=== PATIENT | female | born 1990 ===

== ENCOUNTER 2017-02-11 13:23 | Emergency (ER) | payer OTHER ==
[2017-02-11 13:40] VITALS: BMI 16.9
[2017-02-11] MEDS ORDERED: TDAP Vaccine 0.5 mL Syr IM ONE (13:40)
--- NOTE | 2017-02-11 13:40 | ED PDOC ---
Arrival/HPI - General Time Seen by Provider: 02/11/17 13:38 Historian: Patient - History of Present Illness Narrative History of Present Illness (Text): 02/11/17 13:38 This 26 yo female presents to this ED for evaluation of needle stick while at work x [employer]. 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 Denies other complains. Time/Duration: Prior to Arrival Context: Work Past Medical History - Provider Review Nursing Documentation Reviewed: Yes Family/Social History - Physician Review Nursing Documentation Reviewed: Yes Family/Social History: Other (non-contributory) Allergies/Home Meds Allergies/Adverse Reactions: Allergies No Known Allergies Allergy (Verified 02/11/17 13:40) Home Medications: Home Meds Medication Instructions Recorded Confirmed No Known Home Med 02/11/17 02/11/17 Review of Systems - Review of Systems Constitutional: Normal. absent: Fatigue, Weight Change, Fevers Eyes: Normal ENT: Normal Respiratory: Normal Cardiovascular: Normal Gastrointestinal: Normal Genitourinary Female: Normal Musculoskeletal: Other (see hpi) Skin: Normal Neurological: Normal Endocrine: Normal Hemo/Lymphatic: Normal Psychiatric: Normal Physical Exam Vital Signs Temp Pulse Resp BP Pulse Ox 02/11/17 13:41 98.3 F 73 18 124/76 100 Temperature: Afebrile Blood Pressure: Normal Pulse: Regular Respiratory Rate: Normal Appearance: Positive for: Well-Appearing, Non-Toxic, Comfortable Pain Distress: None Mental Status: Positive for: Alert and Oriented X 3 - Systems Exam Head: Present: Atraumatic, Normocephalic Pupils: Present: PERRL Extroacular Muscles: Present: EOMI Conjunctiva: Present: Normal Mouth: Present: Moist Mucous Membranes Neck: Present: Normal Range of Motion Respiratory/Chest: Present: Clear to Auscultation, Good Air Exchange. No: Respiratory Distress, Accessory Muscle Use, Wheezes, Decreased Breath Sounds, Rales, Retracting, Rhonchi, Tachypneic Cardiovascular: Present: Regular Rate and Rhythm, Normal S1, S2. No: Murmurs Upper Extremity: Present: Normal Inspection, Normal ROM, NORMAL PULSES, Neurovascularly Intact, Capillary Refill < 2s, Other (superficial abrasion/ puncture left dorsal index finger near distal IPJ area). No: Cyanosis, Edema Neurological: Present: GCS=15, CN II-XII Intact, Speech Normal, Motor Func Grossly Intact, Normal Sensory Function, Normal Cerebellar Funct, Gait Normal Skin: Present: Warm, Dry, Normal Color. No: Rashes Psychiatric: Present: Alert, Oriented x 3, Normal Insight, Normal Concentration Medical Decision Making ED Course and Treatment: 02/11/17 14:24 Re-evaluation. Patient feels better. Discussed results and plan with patient who expresses understanding. All questions answered and there is agreement with the plan to discharge home with instructions. Patient stable for discharge. Return if symptoms persist or worsen. 02/11/17 14:24 Patient refused to have prophylactic treatment for HIV. Re-evaluation Time: 14:24 Reassessment Condition: Re-examined, Improved - Lab Interpretations Lab Results: 02/11/17 14:00 02/11/17 14:00 Lab Results 02/11/17 14:00: Sodium 140, Potassium 4.1, Chloride 102, Carbon Dioxide 27, Anion Gap 15, BUN 13, Creatinine 0.6, Est GFR ( Amer) > 60, Est GFR (Non- Af Amer) > 60, Random Glucose 89, Calcium 9.7, Total Bilirubin 0.8, AST 22, ALT 28, Alkaline Phosphatase 42, Total Protein 7.6, Albumin 4.5, Globulin 3.1, Albumin/Globulin Ratio 1.5, Amylase 65, Lipase 28 02/11/17 14:00: WBC 7.0, RBC 4.59, Hgb 13.0, Hct 37.8, MCV 82.4, MCH 28.3, MCHC 34.4, RDW 13.8, Plt Count 268, MPV 10.7, Gran % 73.2 H, Lymph % (Auto) 21.4 L, [place] % (Auto) 5.0, Eos % (Auto) 0.3 L, Baso % (Auto) 0.1, Gran # 5.09, Lymph # 1.5, [place] # 0.4, Eos # 0.0, Baso # 0.01 - Medication Orders Current Medication Orders: Discontinued Medications Tetanus/Reduced Diphtheria/Acell Pertussis (Boostrix Vaccine Inj) 0.5 ml IM .ONCE ONE Stop: 02/11/17 13:41 Last Admin: 02/11/17 14:14 Dose: 0.5 ml [facility] [place] Immunization Data Document 02/11/17 14:14 MR (Rec: 02/11/17 14:15 MR [id number]) Immunization Data Vaccine Lot Number [id number] Disposition/Present on Arrival - Present on Arrival Any Indicators Present on Arrival: No History of DVT/PE: No History of Uncontrolled Diabetes: No Urinary Catheter: No History of Decub. Ulcer: No - Disposition Have Diagnosis and Disposition been Completed?: Yes Diagnosis: Needle stick injury of finger Disposition: HOME/ ROUTINE Disposition Time: 14:25 Patient Plan: Discharge Condition: GOOD Discharge Instructions (ExitCare): Needle Stick Injuries (ED) Additional Instructions: Call employee health Department for further medical care. return to emergency if infection occurs Referrals: Trent Edwards, DO [Primary Care Provider] - Follow up with primary
[2017-02-11 13:42] VITALS: BP 124/76; PULSE 73; RESP 18; TEMP 98.3; O2SAT 100
[2017-02-11 14:11] LABS: BASO # 0.01 K/mm3 (0.0-2.0); BASO % 0.1 % (0.0-3.0); EOS % 0.3 % (1.5-5.0); GRAN # 5.09 (1.4-6.5); GRAN % 73.2 % (50.0-68.0); HEMATOCRIT 37.8 % (36.0-48.0); LYMPH # 1.5 (1.2-3.4); LYMPH % 21.4 % (22.0-35.0); MEAN CELL VOLUME 82.4 fl (80.0-105.0); MEAN CORPUSCULAR HEMOGLOBIN 28.3 pg (25.0-35.0); MEAN CORPUSCULAR HGB CONC 34.4 g/dl (31.0-37.0); MEAN PLATELET VOLUME 10.7 fl (7.0-11.0); MONO # 0.4 (0.1-0.6); RED CELL DISTRIBUTION WIDTH 13.8 % (11.5-14.5)
[2017-02-11 14:21] LABS: ALB/GLOB RATIO 1.5 (1.1-1.8); ALKALINE PHOSPHATASE 42 U/L (38-126); ALT/SGPT 28 U/L (7-56); AMYLASE 65 U/L (35-125); AST/SGOT 22 U/L (14-36); BILIRUBIN,TOTAL 0.8 mg/dL (0.2-1.3); BLOOD UREA NITROGEN 13 mg/dL (7-21); CALCIUM 9.7 mg/dL (8.4-10.5); CARBON DIOXIDE 27 mmol/L (21-33); CHLORIDE 102 mmol/L (98-107); GFR AFRICAN-AMERICAN > 60; GLUCOSE,RANDOM 89 mg/dL (70-110); LIPASE 28 U/L (23-300); POTASSIUM 4.1 mmol/L (3.6-5.0); SODIUM 140 mmol/L (132-148); TOTAL PROTEIN 7.6 g/dL (5.8-8.3)
[2017-02-11 14:36] LABS: URINE BILIRUBIN NEGATIVE (NEGATIVE); URINE BLOOD NEGATIVE (NEGATIVE); URINE GLUCOSE (UA) NEGATIVE (NEGATIVE); URINE KETONE NEGATIVE (NEGATIVE); URINE LEUKOCYTE ESTERASE NEGATIVE Leu/uL (NEGATIVE); URINE PROTEIN NEGATIVE mg/dL (<30 mg/dL); URINE UROBILINOGEN 0.2 E.U./dL (<1 E.U./dL)
[2017-02-11 14:40] LABS: URINE APPEARANCE CLEAR (CLEAR); URINE COLOR YELLOW (YELLOW)
== END 2017-02-11 14:39 | disposition home or self-care (01) ==
LOC: ED 13:23
DX: S61.231A Puncture wound without foreign body of left index finger without damage to nail, initial encounter (principal); W46.0XXA Contact with hypodermic needle, initial encounter; Y93.F9 Activity, other caregiving; Y92.238 Other place in hospital as the place of occurrence of the external cause; Y99.0 Civilian activity done for income or pay; Z23 Encounter for immunization